=== PATIENT | male | born 1950 | race Caucasian/White ===

== ENCOUNTER 2020-11-07 09:58 | Inpatient (IN) ==
[2020-11-08] MEDS ORDERED: Ondansetron ODT 4 MG TAB.RAPDIS SL PRN (18:25)
[2020-11-08] MEDS: Sennosides/Docusate Sodium TABLET PO SCH (20:36)
[2020-11-09 07:20] LABS: Basophils # 0.1 K/mcL (0.0-0.2); Basophils % 0.9 %; Eosinophils # 0.6 K/mcL (0.0-0.6); Hematocrit 37.6 % (37.5-50.1); Hemoglobin 12.7 g/dL (12.9-16.9); Immature Granulocytes % 0.3 % (0-4); Lymphocytes # 1.9 K/mcL (0.6-4.6); Mean Corpuscular HGB Conc 33.8 g/dL (31.6-35.5); Mean Corpuscular Hemoglobin 29.5 pg (28.0-33.3); Mean Corpuscular Volume 87.4 fL (83.0-100.0); Mean Platelet Volume 10.4 fL (9.4-12.4); Monocytes # 1.1 K/mcL (0.0-1.3); Monocytes % 11.6 %; Neutrophils # 5.8 K/mcL (1.6-8.9); Platelet Count 242 K/mcL (140-400); Red Cell Distribution Width 13.6 % (11.5-14.5); Segmented Neutrophils % 61.2 %; White Blood Count 9.6 K/mcL (4.3-11.1)
[2020-11-09 07:45] LABS: BUN/Creatinine Ratio 32 (6-26); Blood Urea Nitrogen 42 mg/dL (8-23); Calcium 9.1 mg/dL (8.6-10.3); Carbon Dioxide 24 mEq/L (23-29); Chloride 100 mEq/L (98-107); Glucose 88 mg/dL (70-105); Osmolality,Calculated 284 (280-300); Potassium 4.2 mEq/L (3.5-5.1); Sodium 132 mEq/L (136-145); eGFR For African Americans > 60 (> 60); eGFR For Non-African Americans 54 (> 60)
[2020-11-09] MEDS: Sennosides/Docusate Sodium TABLET PO SCH ×2 (09:42→23:26)
[2020-11-09] MEDS: Aspirin Enteric Coated 325 MG Tablet PO SCH (09:42)
[2020-11-09] MEDS: Multivit/Ca/Min/Fe/FA 1 TAB TABLET PO SCH (09:42)
[2020-11-09] MEDS: polyethylene glycoL 3350 17 GM POWD.PACK PO SCH (09:55)
[2020-11-09] MEDS ORDERED: Lactulose Oral Soln 20 GM/30 ML UDC PO PRN (16:35)
[2020-11-10] MEDS: Multivit/Ca/Min/Fe/FA 1 TAB TABLET PO SCH (10:30)
[2020-11-10] MEDS: Aspirin Enteric Coated 325 MG Tablet PO SCH (10:31)
[2020-11-10] MEDS: polyethylene glycoL 3350 17 GM POWD.PACK PO SCH (10:31)
[2020-11-10] MEDS: Sennosides/Docusate Sodium TABLET PO SCH ×2 (10:32→21:25)
[2020-11-10] MEDS: Acetaminophen 325 MG TABLET PO PRN (10:37)
[2020-11-11] MEDS: Aspirin Enteric Coated 325 MG Tablet PO SCH ×2 (08:39→08:42)
[2020-11-11] MEDS: Sennosides/Docusate Sodium TABLET PO SCH ×3 (08:39→20:23)
[2020-11-11] MEDS: Multivit/Ca/Min/Fe/FA 1 TAB TABLET PO SCH (08:40)
[2020-11-11] MEDS: polyethylene glycoL 3350 17 GM POWD.PACK PO SCH ×2 (08:40→09:48)
[2020-11-12] MEDS: *HR* Enoxaparin 40 MG/0.4 ML SYRINGE SQ SCH (05:32)
[2020-11-12] MEDS: Aspirin Enteric Coated 325 MG Tablet PO SCH (08:06)
[2020-11-12] MEDS: Multivit/Ca/Min/Fe/FA 1 TAB TABLET PO SCH (08:06)
[2020-11-12] MEDS: polyethylene glycoL 3350 17 GM POWD.PACK PO SCH (08:06)
[2020-11-12] MEDS: Sennosides/Docusate Sodium TABLET PO SCH ×2 (08:06→19:58)
[2020-11-12] MEDS: Acetaminophen 325 MG TABLET PO PRN (12:06)
[2020-11-13] MEDS: *HR* Enoxaparin 40 MG/0.4 ML SYRINGE SQ SCH (06:54)
[2020-11-13 08:26] LABS: Basophils # 0.1 K/mcL (0.0-0.2); Basophils % 1.2 %; Eosinophils # 0.7 K/mcL (0.0-0.6); Eosinophils % 7.8 %; Hemoglobin 13.4 g/dL (12.9-16.9); Immature Granulocytes % 0.3 % (0-4); Lymphocytes # 2.3 K/mcL (0.6-4.6); Lymphocytes % 25.1 %; Mean Corpuscular HGB Conc 32.7 g/dL (31.6-35.5); Mean Corpuscular Hemoglobin 29.1 pg (28.0-33.3); Mean Corpuscular Volume 89.1 fL (83.0-100.0); Mean Platelet Volume 9.9 fL (9.4-12.4); Monocytes # 0.9 K/mcL (0.0-1.3); Monocytes % 9.8 %; Neutrophils # 5.2 K/mcL (1.6-8.9); Platelet Count 330 K/mcL (140-400); Red Cell Distribution Width 13.7 % (11.5-14.5); Segmented Neutrophils % 55.8 %; White Blood Count 9.3 K/mcL (4.3-11.1)
[2020-11-13 08:36] LABS: Calcium 9.5 mg/dL (8.6-10.3); Potassium 4.3 mEq/L (3.5-5.1)
[2020-11-13] MEDS: Multivit/Ca/Min/Fe/FA 1 TAB TABLET PO SCH (10:06)
[2020-11-13] MEDS: Sennosides/Docusate Sodium TABLET PO SCH ×2 (10:06→19:54)
[2020-11-13] MEDS: polyethylene glycoL 3350 17 GM POWD.PACK PO SCH (10:07)
[2020-11-14] MEDS: *HR* Enoxaparin 40 MG/0.4 ML SYRINGE SQ SCH (06:16)
[2020-11-14] MEDS: Multivit/Ca/Min/Fe/FA 1 TAB TABLET PO SCH (09:11)
[2020-11-14] MEDS: Aspirin Enteric Coated 325 MG Tablet PO SCH (09:11)
[2020-11-14] MEDS: Sennosides/Docusate Sodium TABLET PO SCH ×2 (09:12→20:32)
[2020-11-14] MEDS: polyethylene glycoL 3350 17 GM POWD.PACK PO SCH (09:12)
[2020-11-14] MEDS: Acetaminophen 325 MG TABLET PO PRN (12:47)
[2020-11-14] MEDS: Melatonin 3 MG TABLET PO PRN (23:10)
[2020-11-15] MEDS: *HR* Enoxaparin 40 MG/0.4 ML SYRINGE SQ SCH (06:18)
[2020-11-15] MEDS: polyethylene glycoL 3350 17 GM POWD.PACK PO SCH (08:05)
[2020-11-15] MEDS: Multivit/Ca/Min/Fe/FA 1 TAB TABLET PO SCH (08:05)
[2020-11-15] MEDS: Sennosides/Docusate Sodium TABLET PO SCH ×2 (08:05→20:25)
[2020-11-15] MEDS: Aspirin Enteric Coated 325 MG Tablet PO SCH (08:16)
[2020-11-15] MEDS: Melatonin 3 MG TABLET PO PRN (22:16)
[2020-11-16] MEDS: *HR* Enoxaparin 40 MG/0.4 ML SYRINGE SQ SCH (05:03)
[2020-11-16] MEDS: Sennosides/Docusate Sodium TABLET PO SCH ×2 (09:37→20:23)
[2020-11-16] MEDS: Aspirin Enteric Coated 325 MG Tablet PO SCH (09:38)
[2020-11-16] MEDS: Multivit/Ca/Min/Fe/FA 1 TAB TABLET PO SCH (09:38)
[2020-11-16] MEDS: Acetaminophen 325 MG TABLET PO PRN (09:38)
[2020-11-16] MEDS: polyethylene glycoL 3350 17 GM POWD.PACK PO SCH (09:41)
[2020-11-17] MEDS: Melatonin 3 MG TABLET PO PRN ×2 (02:00→21:18)
[2020-11-17] MEDS: *HR* Enoxaparin 40 MG/0.4 ML SYRINGE SQ SCH (05:27)
[2020-11-17] MEDS: polyethylene glycoL 3350 17 GM POWD.PACK PO SCH (08:56)
[2020-11-17] MEDS: Sennosides/Docusate Sodium TABLET PO SCH ×2 (08:56→20:21)
[2020-11-17] MEDS: Multivit/Ca/Min/Fe/FA 1 TAB TABLET PO SCH (08:56)
[2020-11-17] MEDS: Aspirin Enteric Coated 325 MG Tablet PO SCH (08:56)
[2020-11-17] MEDS: Acetaminophen 325 MG TABLET PO PRN (08:56)
[2020-11-18] MEDS: *HR* Enoxaparin 40 MG/0.4 ML SYRINGE SQ SCH (05:03)
[2020-11-18] MEDS: Multivit/Ca/Min/Fe/FA 1 TAB TABLET PO SCH (08:42)
[2020-11-18] MEDS: Aspirin Enteric Coated 325 MG Tablet PO SCH (08:42)
[2020-11-18] MEDS: polyethylene glycoL 3350 17 GM POWD.PACK PO SCH (08:44)
[2020-11-18] MEDS: Sennosides/Docusate Sodium TABLET PO SCH ×2 (08:44→20:31)
[2020-11-18] MEDS: Melatonin 3 MG TABLET PO PRN (22:02)
[2020-11-19] MEDS: *HR* Enoxaparin 40 MG/0.4 ML SYRINGE SQ SCH (05:28)
[2020-11-19 07:19] LABS: Basophils # 0.1 K/mcL (0.0-0.2); Basophils % 1.1 %; Eosinophils # 0.6 K/mcL (0.0-0.6); Eosinophils % 7.5 %; Hematocrit 36.9 % (37.5-50.1); Hemoglobin 12.1 g/dL (12.9-16.9); Immature Granulocytes % 0.1 % (0-4); Lymphocytes % 23.5 %; Mean Corpuscular HGB Conc 32.8 g/dL (31.6-35.5); Mean Corpuscular Hemoglobin 29.1 pg (28.0-33.3); Mean Corpuscular Volume 88.7 fL (83.0-100.0); Mean Platelet Volume 9.5 fL (9.4-12.4); Monocytes # 0.8 K/mcL (0.0-1.3); Monocytes % 9.1 %; Neutrophils # 4.9 K/mcL (1.6-8.9); Platelet Count 293 K/mcL (140-400); Red Blood Count 4.16 M/mcL (4.19-5.50); Red Cell Distribution Width 13.4 % (11.5-14.5); Segmented Neutrophils % 58.7 %; White Blood Count 8.4 K/mcL (4.3-11.1)
[2020-11-19 07:42] LABS: BUN/Creatinine Ratio 22 (6-26); Blood Urea Nitrogen 26 mg/dL (8-23); Carbon Dioxide 29 mEq/L (23-29); Chloride 103 mEq/L (98-107); Glucose 86 mg/dL (70-105); Osmolality,Calculated 288 (280-300); Potassium 4.2 mEq/L (3.5-5.1); Sodium 137 mEq/L (136-145); eGFR For African Americans > 60 (> 60); eGFR For Non-African Americans > 60 (> 60)
[2020-11-19] MEDS: Acetaminophen 325 MG TABLET PO PRN (09:54)
[2020-11-19] MEDS: Sennosides/Docusate Sodium TABLET PO SCH ×2 (09:55→19:43)
[2020-11-19] MEDS: polyethylene glycoL 3350 17 GM POWD.PACK PO SCH (09:55)
[2020-11-19] MEDS: Multivit/Ca/Min/Fe/FA 1 TAB TABLET PO SCH (09:56)
[2020-11-19] MEDS: Aspirin Enteric Coated 325 MG Tablet PO SCH (09:56)
[2020-11-19] MEDS: Melatonin 3 MG TABLET PO PRN (21:07)
[2020-11-20] MEDS: *HR* Enoxaparin 40 MG/0.4 ML SYRINGE SQ SCH (05:50)
[2020-11-20 06:43] VITALS: BP 108/77; PULSE 81; RESP 18; TEMP 97.5; O2SAT 96
== END 2020-11-20 11:54 | disposition home health service (06) | DRG 560 ==
LOC: PREOBSVTOIN 09:58 → INPPIK 11-08 19:44
PROVIDERS: ADMIT Family Medicine; ATTEND Family Medicine